=== PATIENT | male | born 1950 | race Caucasian/White ===

== ENCOUNTER 2017-02-25 16:07 | Inpatient (IN) | payer BC, MEDICARE, OTHER ==
[~2017-02-25] VITALS: Ht 182.9 cm; Wt 104.7 kg
[2017-02-25] MEDS ORDERED: SODIUM CHLORIDE 0.9% 1,000 ML IV SCH (16:37)
[2017-02-25] MEDS ORDERED: FINA5TAB4 PO (16:46)
[2017-02-25] MEDS ORDERED: METO-282 PO (16:46)
[2017-02-25] MEDS ORDERED: ISOS30TA8 PO (16:46)
[2017-02-25] MEDS ORDERED: AMLO5TAB2 PO (16:46)
[2017-02-25] MEDS ORDERED: OMEP-110 PO (16:46)
[2017-02-25] MEDS ORDERED: MIRT30TA4 PO (16:46)
[2017-02-25] MEDS ORDERED: SERT100T5 PO (16:46)
[2017-02-25] MEDS ORDERED: [UNRECOGNIZED DRUG - CODE] EACH EAR (16:46)
[2017-02-25] MEDS ORDERED: ATOR20TA9 PO (16:46)
[2017-02-25] MEDS ORDERED: DONE10TA14 PO (16:46)
[2017-02-25] MEDS ORDERED: ONDANSETRON 2MG/ML, 2ML IVPush PRN (17:00)
[2017-02-25] MEDS ORDERED: hydrALAzine 20 MG/ML, 1ML IVPush PRN (17:00)
[2017-02-25] MEDS ORDERED: OXYcodone IR 5MG TABLET PO PRN (17:00)
[2017-02-25] MEDS ORDERED: POLYETHYLENE GLYCOL 17 GM PACKET PO PRN (17:00)
[2017-02-25] MEDS: HEPARIN 5,000 UNITS/ML, 1ML SQ SCH (17:00)
[2017-02-25] MEDS ORDERED: BISACODYL 10 MG SUPP PR PRN (17:00)
[2017-02-25] MEDS ORDERED: ENALAPRILAT 1.25 MG/ML, 2ML IVPush PRN (17:00)
[2017-02-25] MEDS ORDERED: ACETAMINOPHEN 325 MG TABLET PO PRN (17:00)
[2017-02-25] MEDS ORDERED: morphine SULFATE 10 MG/ML, 1ML IVPush PRN (17:00)
[2017-02-25] MEDS ORDERED: MIDAZOLAM 1 MG/ML, 5ML ONE (17:10)
[2017-02-25] MEDS ORDERED: FENTANYL PF 100 MCG/2ML ONE (17:10)
[2017-02-25] MEDS ORDERED: VERAPAMIL 2.5 MG/ML, 2ML ONE (17:11)
[2017-02-25] MEDS ORDERED: HEPARIN 1,000 UNITS/ML, 10ML ONE (17:11)
[2017-02-25] MEDS ORDERED: TICAGRELOR 90 MG TABLET ONE (17:11)
[2017-02-25] MEDS ORDERED: BIVALIRUDIN 250 MG ONE ×2 (17:11→18:18)
[2017-02-25] MEDS ORDERED: LIDOCAINE 2%, 20ML ONE (17:11)
[2017-02-25 17:15] VITALS: BP 111/72
[2017-02-25] MEDS ORDERED: PLEASE ENTER ALLERGIES MC SCH ×2 (17:30)
[2017-02-25] MEDS ORDERED: PLEASE ENTER HEIGHT AND WEIGHT MC SCH (17:30)
[2017-02-25] MEDS ORDERED: BIVALIRUDIN 250 MG in DEXTROSE 5% 50 ML IV SCH (19:19)
[2017-02-25] MEDS: CARBAMIDE PEROXIDE EAR DROPS 6.5%, 15ML EACH EAR SCH (20:39)
[2017-02-25] MEDS: DONEPEZIL 10 MG TABLET PO SCH (20:40)
[2017-02-25] MEDS: ATORVASTATIN 20 MG TABLET PO SCH (20:40)
[2017-02-25] MEDS: MIRTAZAPINE 15 MG TABLET PO SCH (20:40)
[2017-02-25] MEDS: TICAGRELOR 90 MG TABLET PO SCH (20:40)
[2017-02-25] MEDS: SODIUM CHLORIDE 0.9% 1,000 ML IV SCH (20:44)
[2017-02-25 21:30] LABS: IS PT STATUS REG ER OR PRE ER? NO
[2017-02-26] MEDS ORDERED: LORazepam 2 MG/ML, 1ML IVPush PRN (01:00)
[2017-02-26] MEDS: HEPARIN 5,000 UNITS/ML, 1ML SQ SCH ×3 (01:00→17:41)
[2017-02-26] MEDS: SODIUM CHLORIDE 0.9% 1,000 ML IV SCH (03:19)
[2017-02-26 04:37] LABS: ASPARTATE AMINO TRANSFERASE 20 U/L (15-37); BLOOD UREA NITROGEN 16 mg/dL (7-18)
[2017-02-26 04:43] LABS: HEMATOCRIT 42.5 % (39.2-51.8); HEMOGLOBIN 14.9 g/dL (13.7-18.0); WHITE BLOOD COUNT 9.2 x10^3/uL (3.4-10)
[2017-02-26] MEDS ORDERED: ASPIRIN 325 MG TABLET EC PO SCH (06:00)
[2017-02-26] MEDS: CARBAMIDE PEROXIDE EAR DROPS 6.5%, 15ML EACH EAR SCH ×2 (09:00→20:22)
[2017-02-26] MEDS: AMLODIPINE 5 MG TABLET PO SCH (09:38)
[2017-02-26] MEDS: FINASTERIDE 5 MG TABLET PO SCH (09:39)
[2017-02-26] MEDS: ISOSORBIDE MONONITRATE ER 30 MG TABLET PO SCH (09:39)
[2017-02-26] MEDS: METOPROLOL SUCCINATE 25 MG TAB.ER.24H PO SCH (09:39)
[2017-02-26] MEDS: OMEPRAZOLE 20 MG CAPSULE.DR PO SCH (09:39)
[2017-02-26] MEDS: TICAGRELOR 90 MG TABLET PO SCH ×2 (09:39→20:17)
[2017-02-26] MEDS: SERTRALINE 100MG TABLET PO SCH (09:40)
[2017-02-26] MEDS: SENNA/DOCUSATE TABLET PO SCH (09:41)
[2017-02-26] MEDS: ASPIRIN 81 MG TABLET EC PO SCH (09:54)
[2017-02-26] MEDS: LISINOPRIL 5 MG TABLET PO SCH (11:06)
[2017-02-26 18:11] VITALS: BP 104/63
[2017-02-26 19:11] VITALS: BP 115/72
[2017-02-26] MEDS ORDERED: SODIUM CHLORIDE 0.9% 1,000 ML IV SCH (19:19)
[2017-02-26] MEDS: MIRTAZAPINE 15 MG TABLET PO SCH (20:17)
[2017-02-26] MEDS: DONEPEZIL 10 MG TABLET PO SCH (20:17)
[2017-02-26] MEDS: ATORVASTATIN 20 MG TABLET PO SCH (20:22)
[2017-02-27] MEDS: HEPARIN 5,000 UNITS/ML, 1ML SQ SCH ×2 (01:38→08:43)
[2017-02-27 04:00] VITALS: BP 127/74
[2017-02-27 05:40] LABS: BLOOD UREA NITROGEN 16 mg/dL (7-18)
[2017-02-27 08:00] VITALS: BP 114/57
[2017-02-27] MEDS: CARBAMIDE PEROXIDE EAR DROPS 6.5%, 15ML EACH EAR SCH (08:39)
[2017-02-27] MEDS: ISOSORBIDE MONONITRATE ER 30 MG TABLET PO SCH (08:41)
[2017-02-27] MEDS: AMLODIPINE 5 MG TABLET PO SCH (08:41)
[2017-02-27] MEDS: ASPIRIN 81 MG TABLET EC PO SCH (08:41)
[2017-02-27] MEDS: METOPROLOL SUCCINATE 25 MG TAB.ER.24H PO SCH (08:41)
[2017-02-27] MEDS: SERTRALINE 100MG TABLET PO SCH (08:41)
[2017-02-27] MEDS: OMEPRAZOLE 20 MG CAPSULE.DR PO SCH (08:42)
[2017-02-27] MEDS: FINASTERIDE 5 MG TABLET PO SCH (08:42)
[2017-02-27] MEDS: TICAGRELOR 90 MG TABLET PO SCH (08:42)
[2017-02-27] MEDS: LISINOPRIL 5 MG TABLET PO SCH (08:42)
[2017-02-27] MEDS: SENNA/DOCUSATE TABLET PO SCH (08:44)
[2017-02-27] MEDS ORDERED: POTASSIUM CHLORIDE 20 MEQ TAB.ER.PRT PO ONE (09:30)
[2017-02-27] MEDS ORDERED: LISI5TAB7 PO (12:34)
[2017-02-27] MEDS ORDERED: TICA90TA PO (12:34)
[2017-02-27] MEDS ORDERED: ASPI-621 PO (12:34)
== END 2017-02-27 14:20 | disposition home or self-care (01) | DRG 246 ==
LOC: 5SO 16:07 → CCU 19:32 → 5SO 02-26 12:58
PROVIDERS: ADMIT Internal Medicine; ATTEND Internal Medicine
PROC: 027035Z Dilation of Coronary Artery, One Artery with Two Drug-eluting Intraluminal Devices, Percutaneous Approach (ICD-10-PCS; principal; 2017-02-25)
PROC: 4A023N7 Measurement of Cardiac Sampling and Pressure, Left Heart, Percutaneous Approach (ICD-10-PCS; 2017-02-25)
PROC: B2111ZZ Fluoroscopy of Multiple Coronary Arteries using Low Osmolar Contrast (ICD-10-PCS; 2017-02-25)
PROC: 5A1213Z Performance of Cardiac Pacing, Intermittent (ICD-10-PCS; 2017-02-25)
DX: I25.110 Atherosclerotic heart disease of native coronary artery with unstable angina pectoris (principal); I46.9 Cardiac arrest, cause unspecified; I71.2 Thoracic aortic aneurysm, without rupture; I48.0 Paroxysmal atrial fibrillation; F03.90 Unspecified dementia, unspecified severity, without behavioral disturbance, psychotic disturbance, mood disturbance, and anxiety; E78.5 Hyperlipidemia, unspecified; F43.10 Post-traumatic stress disorder, unspecified; G47.30 Sleep apnea, unspecified; I10 Essential (primary) hypertension; I25.5 Ischemic cardiomyopathy; I45.5 Other specified heart block; I71.4 Abdominal aortic aneurysm, without rupture; J44.9 Chronic obstructive pulmonary disease, unspecified; N40.0 Benign prostatic hyperplasia without lower urinary tract symptoms; Z79.82 Long term (current) use of aspirin; Z86.79 Personal history of other diseases of the circulatory system; Z87.891 Personal history of nicotine dependence; Z79.899 Other long term (current) drug therapy
CPT/HCPCS: 33210; 36415; 80048; 80053; 80061; 81001; 83036; 83735; 84439; 84443; 84484; 85025; 87081; 92953; 93005; 93306; 93454; 99156; 99157; C1769; C1894; C9600; J0583; J1644; J2250; J3010; J3490; C1725; C1874; C1887; J7030; Q9967